=== PATIENT | male | born 1985 | race Caucasian/White ===

== ENCOUNTER 2016-06-07 12:56 | Observation (INO) | payer OTHER ==
[~2016-06-07] VITALS: Ht 172.7 cm; Wt 59.8 kg
[2016-06-07 13:47] LABS: HEMOGLOBIN 15.6 g/dL (13.7-18.0)
[2016-06-07 13:54] LABS: ASPARTATE AMINO TRANSFERASE 18 U/L (15-37); BLOOD UREA NITROGEN 8 mg/dL (7-18)
[2016-06-07 13:58] LABS: ACETAMINOPHEN < 2 mcg/mL (10-30)
[2016-06-07 14:13] LABS: DAU SCREEN DISCLAIMER
[2016-06-07 14:26] LABS: ICTOTEST NEGATIVE
[2016-06-07] MEDS ORDERED: ZIPRASIDONE 40MG CAPSULE PO ONE (17:00)
[2016-06-07] MEDS ORDERED: ZIPRASIDONE 20 MG INJ IM PRN (17:30)
[2016-06-07] MEDS ORDERED: ACETAMINOPHEN 325 MG TABLET PO PRN (17:30)
[2016-06-07] MEDS ORDERED: ZIPRASIDONE 20MG CAPSULE PO PRN (17:30)
[2016-06-07] MEDS ORDERED: DIPHENHYDRAMINE 50 MG CAPSULE PO PRN (17:30)
[2016-06-07 20:00] VITALS: BP 101/57
[2016-06-08 08:34] VITALS: BP 101/68
[2016-06-08 19:48] VITALS: BP 106/68
[2016-06-09 08:05] VITALS: BP 115/76
[2016-06-09 19:44] VITALS: BP 109/71
== END 2016-06-09 22:06 ==
LOC: ED 17:16 → EDIP 18:36 → 3E 18:50
DX: R45.851 Suicidal ideations (principal); F43.10 Post-traumatic stress disorder, unspecified; F32.9 Major depressive disorder, single episode, unspecified; F15.90 Other stimulant use, unspecified, uncomplicated; F17.210 Nicotine dependence, cigarettes, uncomplicated; Z91.5 Personal history of self-harm; Z59.0 Homelessness
CPT/HCPCS: 36415; 80053; 80307; 80329; 81003; 85025; 99285; G0378; G0480

== ENCOUNTER 2016-08-03 11:33 | Observation (INO) | payer OTHER ==
[~2016-08-03] VITALS: Ht 172.7 cm; Wt 58.8 kg
[2016-08-03 12:46] LABS: ASPARTATE AMINO TRANSFERASE 24 U/L (15-37); BLOOD UREA NITROGEN 9 mg/dL (7-18)
[2016-08-03 12:50] LABS: ACETAMINOPHEN < 2 mcg/mL (10-30)
[2016-08-03 13:16] LABS: DAU SCREEN DISCLAIMER
[2016-08-03] MEDS ORDERED: LORazepam 1MG TABLET PO PRN (17:30)
[2016-08-03 17:59] VITALS: BP 103/67
[2016-08-03] MEDS ORDERED: ACETAMINOPHEN 325 MG TABLET PO PRN (18:00)
[2016-08-03 18:08] VITALS: BP 103/67
[2016-08-03] MEDS: POTASSIUM CHLORIDE 20 MEQ TAB.ER.PRT PO SCH ×2 (18:24→19:30)
[2016-08-03 19:26] VITALS: BP 101/69
[2016-08-04 05:38] LABS: BLOOD UREA NITROGEN 13 mg/dL (7-18)
[2016-08-04 08:02] VITALS: BP 100/66
[2016-08-04] MEDS: OLANZAPINE 2.5 MG TABLET PO SCH (08:57)
[2016-08-04 19:49] VITALS: BP 102/62
[2016-08-05 08:00] VITALS: BP 102/68
[2016-08-05] MEDS: OLANZAPINE 2.5 MG TABLET PO SCH (09:10)
[2016-08-05 19:45] VITALS: BP 101/63
[2016-08-06 08:00] VITALS: BP 106/65
[2016-08-06] MEDS: OLANZAPINE 2.5 MG TABLET PO SCH (09:00)
[2016-08-06 20:02] VITALS: BP 105/68
[2016-08-07 07:41] VITALS: BP 95/65
[2016-08-07] MEDS: OLANZAPINE 2.5 MG TABLET PO SCH (09:11)
[2016-08-07 17:17] VITALS: BP 103/68
[2016-08-07 19:53] VITALS: BP 101/66
[2016-08-08 08:00] VITALS: BP 110/74
[2016-08-08] MEDS: OLANZAPINE 2.5 MG TABLET PO SCH (08:43)
[2016-08-08] MEDS ORDERED: OLAN2.5T5 PO (09:22)
== END 2016-08-08 10:08 | disposition home or self-care (01) ==
LOC: ED 12:48 → EDIP 17:04 → 3E 17:55
PROVIDERS: ADMIT Internal Medicine
DX: R45.851 Suicidal ideations (principal); F32.3 Major depressive disorder, single episode, severe with psychotic features; E87.6 Hypokalemia; F43.10 Post-traumatic stress disorder, unspecified; Z72.0 Tobacco use
CPT/HCPCS: 36415; 80048; 80053; 80307; 80329; 81001; 85025; 99285; G0378; G0480

== ENCOUNTER 2016-09-07 14:12 | Observation (INO) | payer OTHER ==
[~2016-09-07] VITALS: Ht 172.7 cm; Wt 59.4 kg
[~2016-09-07 14:12] MED LIST: OLAN2.5T5 PO
[2016-09-07 15:02] LABS: DAU SCREEN DISCLAIMER
[2016-09-07 15:11] LABS: ASPARTATE AMINO TRANSFERASE 21 U/L (15-37); BLOOD UREA NITROGEN 5 mg/dL (7-18)
[2016-09-07 15:12] LABS: ACETAMINOPHEN < 2 mcg/mL (10-30)
[2016-09-07] MEDS ORDERED: DOCUSATE 100 MG CAPSULE PO PRN (17:00)
[2016-09-07] MEDS ORDERED: ONDANSETRON ODT 4 MG PO PRN (17:00)
[2016-09-07] MEDS ORDERED: ACETAMINOPHEN 325 MG TABLET PO PRN (17:00)
[2016-09-07] MEDS ORDERED: LORazepam 1MG TABLET PO PRN (17:00)
[2016-09-07] MEDS ORDERED: HYDROcodone/APAP 5/325 TABLET PO PRN (17:00)
[2016-09-07] MEDS ORDERED: LORazepam 2 MG/ML, 1ML IVPush PRN (17:00)
[2016-09-08] MEDS: OLANZAPINE 2.5 MG TABLET PO SCH (13:52)
[2016-09-09] MEDS: OLANZAPINE 2.5 MG TABLET PO SCH (08:40)
[2016-09-09 08:48] VITALS: BP 108/69
[2016-09-09 22:14] VITALS: BP 105/64
[2016-09-10 08:00] VITALS: BP 106/62
[2016-09-10] MEDS: OLANZAPINE 2.5 MG TABLET PO SCH (08:57)
[2016-09-10 19:50] VITALS: BP 108/64
[2016-09-11 07:42] VITALS: BP 112/74
[2016-09-11] MEDS: OLANZAPINE 2.5 MG TABLET PO SCH (09:16)
== END 2016-09-11 09:30 ==
LOC: ED 14:37 → EDIP 16:02 → 3E 09-08 22:18
PROVIDERS: ADMIT Internal Medicine
DX: F32.9 Major depressive disorder, single episode, unspecified (principal); R45.851 Suicidal ideations; F15.90 Other stimulant use, unspecified, uncomplicated; F12.90 Cannabis use, unspecified, uncomplicated; F43.10 Post-traumatic stress disorder, unspecified
CPT/HCPCS: 36415; 80053; 80307; 80329; 85025; 99285; G0378; G0480

== ENCOUNTER 2016-09-17 04:23 | Emergency (ER) | payer SELFPAY ==
[~2016-09-17] VITALS: Ht 172.7 cm; Wt 57.6 kg
[2016-09-17 04:24] VITALS: BP 123/77
== END 2016-09-17 04:47 | disposition home or self-care (01) ==
LOC: ED 04:45
DX: Z00.00 Encounter for general adult medical examination without abnormal findings (principal)
CPT/HCPCS: 99281

== ENCOUNTER 2016-10-21 11:33 | Observation (INO) | payer OTHER ==
[~2016-10-21] VITALS: Ht 172.7 cm; Wt 64.0 kg
[2016-10-21 12:14] LABS: DAU SCREEN DISCLAIMER
[2016-10-21 12:24] LABS: HEMATOCRIT 39.6 % (39.2-51.8); HEMOGLOBIN 13.1 g/dL (13.7-18.0)
[2016-10-21 12:30] LABS: BLOOD UREA NITROGEN 2 mg/dL (7-18)
[2016-10-21 12:38] LABS: ASPARTATE AMINO TRANSFERASE 16 U/L (15-37)
[2016-10-21 12:39] LABS: ACETAMINOPHEN < 2 mcg/mL (10-30)
[2016-10-21] MEDS ORDERED: LORazepam 2 MG/ML, 1ML IM PRN (17:00)
[2016-10-21] MEDS ORDERED: ACETAMINOPHEN 325 MG TABLET PO PRN (17:00)
[2016-10-21] MEDS: LORazepam 1MG TABLET PO PRN (17:51)
[2016-10-21] MEDS: POTASSIUM CHLORIDE 20 MEQ TAB.ER.PRT PO SCH (17:51)
[2016-10-21] MEDS: NICOTINE 14MG/24 HR PATCH.TD24 TD SCH (17:54)
[2016-10-21 19:59] VITALS: BP 103/61
[2016-10-21] MEDS: OLANZAPINE 2.5 MG TABLET PO SCH (21:41)
[2016-10-22 07:41] VITALS: BP 104/66
[2016-10-22] MEDS: POTASSIUM CHLORIDE 20 MEQ TAB.ER.PRT PO SCH (08:55)
[2016-10-22] MEDS: NICOTINE 14MG/24 HR PATCH.TD24 TD SCH (18:00)
[2016-10-22 19:17] VITALS: BP 107/56
[2016-10-22] MEDS: OLANZAPINE 2.5 MG TABLET PO SCH (20:38)
[2016-10-23 07:26] VITALS: BP 104/67
[2016-10-23 09:10] LABS: BLOOD UREA NITROGEN 7 mg/dL (7-18)
[2016-10-23] MEDS: NICOTINE 14MG/24 HR PATCH.TD24 TD SCH (18:00)
[2016-10-23 19:16] VITALS: BP 108/64
[2016-10-23] MEDS: OLANZAPINE 2.5 MG TABLET PO SCH (20:58)
[2016-10-24 07:42] VITALS: BP 97/57
[2016-10-24] MEDS: NICOTINE 14MG/24 HR PATCH.TD24 TD SCH (17:14)
[2016-10-24 19:34] VITALS: BP 112/71
[2016-10-24] MEDS: OLANZAPINE 2.5 MG TABLET PO SCH (20:09)
[2016-10-24] MEDS: LORazepam 1MG TABLET PO PRN (20:09)
[2016-10-25 08:01] VITALS: BP 104/72
== END 2016-10-25 08:45 ==
LOC: ED 13:02 → EDIP 15:32 → 3E 17:10
PROVIDERS: ADMIT Internal Medicine; ATTEND Internal Medicine
DX: R45.851 Suicidal ideations (principal); F32.9 Major depressive disorder, single episode, unspecified; F15.90 Other stimulant use, unspecified, uncomplicated; E87.6 Hypokalemia; F43.10 Post-traumatic stress disorder, unspecified; F22 Delusional disorders; F17.210 Nicotine dependence, cigarettes, uncomplicated; Z91.5 Personal history of self-harm; Z59.0 Homelessness
CPT/HCPCS: 36415; 80048; 80053; 80307; 80329; 85025; 99285; G0378; G0480

== ENCOUNTER 2017-11-27 23:34 | Observation (INO) | payer OTHER ==
[~2017-11-27] VITALS: Ht 175.3 cm; Wt 82.8 kg
[~2017-11-27 23:34] MED LIST changes: +OLAN2.5T10 PO; -OLAN2.5T5 PO
[2017-11-28] MEDS ORDERED: LORazepam 1MG TABLET PO ONE
[2017-11-28 00:26] LABS: ALBUMIN 4.3 g/dL (3.4-5.0); ANION GAP 8 mmol/L (5-15); CALCIUM 8.8 mg/dL (8.5-10.1); CHLORIDE 107 mmol/L (98-107); SALICYLATE LEVEL < 1.7 mg/dL (2.8-20.0)
[2017-11-28 00:27] LABS: ACETAMINOPHEN < 2 mcg/mL (10-30)
[2017-11-28 00:42] LABS: BASOPHILS % (AUTO) 2 % (0-1); EOSINOPHILS # (AUTO) 0.08 x10^3/uL (0-0.4); EOSINOPHILS % (AUTO) 1 % (1-7); LYMPHOCYTES # (AUTO) 4.19 x10^3/uL (1-3.4); LYMPHOCYTES % (AUTO) 43 % (22-44); MD SCAN; MEAN CORPUSCULAR HEMOGLOBIN 29.9 pg (27.5-34.5); MEAN CORPUSCULAR HGB CONC 33.6 g/dL (33.2-36.2); MEAN CORPUSCULAR VOLUME 88.9 fL (81-97); MEAN PLATELET VOLUME 8.1 fL (7.4-10.4); MONOCYTES # (AUTO) 0.64 x10^3/uL (0.2-0.8); MONOCYTES % (AUTO) 7 % (2-9); NEUTROPHILS # (AUTO) 4.67 x10^3/uL (1.8-6.8); NEUTROPHILS % (AUTO) 48 % (42-75); PLATELET COUNT 274 x10^3/uL (130-400); RED CELL DISTRIBUTION WIDTH 13.1 % (9.4-14.8)
[2017-11-28] MEDS ORDERED: LORazepam 1MG TABLET PO PRN (08:00)
[2017-11-28] MEDS ORDERED: POTASSIUM CHLORIDE 20 MEQ TAB.ER.PRT PO ONE (08:00)
[2017-11-28] MEDS ORDERED: POTASSIUM CHLORIDE 20 MEQ TAB.ER.PRT ONE (08:52)
[2017-11-28] MEDS ORDERED: LORazepam 1MG TABLET ONE (08:52)
[2017-11-28 14:48] LABS: AMPHETAMINE SCREEN, URINE Positive (Negative); BARBITURATE SCREEN, URINE Negative (Negative); BENZODIAZEPINE SCREEN, URINE Negative (Negative); CANNABINOID SCREEN, URINE Positive (Negative); COCAINE SCREEN, URINE Negative (Negative); METHADONE SCREEN, URINE Negative (Negative); OPIATE SCREEN, URINE Negative (Negative)
[2017-11-28 16:13] VITALS: BP 110/73
[2017-11-28 16:42] VITALS: BP 110/73
[2017-11-28 19:16] VITALS: BP 106/67
[2017-11-29 08:10] VITALS: BP 110/66
[2017-11-29] MEDS: OLANZAPINE 10 MG TABLET PO SCH ×2 (09:24→21:12)
[2017-11-29 19:28] VITALS: BP 101/59
[2017-11-30 07:42] VITALS: BP 101/59
[2017-11-30] MEDS: OLANZAPINE 10 MG TABLET PO SCH ×2 (08:39→20:34)
[2017-11-30 19:32] VITALS: BP 104/71
[2017-12-01 08:39] VITALS: BP 109/66
[2017-12-01] MEDS: OLANZAPINE 10 MG TABLET PO SCH (08:44)
[2017-12-01] MEDS ORDERED: OLAN10TA9 PO (13:51)
== END 2017-12-01 15:01 ==
LOC: ED 11-28 06:43 → EDIP 11-28 06:44 → 2N 11-28 15:46
PROVIDERS: ADMIT Hospitalist; ATTEND Hospitalist
DX: R45.851 Suicidal ideations (principal); E87.6 Hypokalemia; F20.9 Schizophrenia, unspecified; Z72.0 Tobacco use; Z91.5 Personal history of self-harm
CPT/HCPCS: 36415; 80048; 80307; 80329; 82040; 85025; 99285; G0378; G0480